=== PATIENT | male | born 1975 | race American Indian/Alaskan Native ===

== ENCOUNTER 2018-01-06 21:31 | Emergency (ER) | payer MEDICAID ==
[2018-01-06 21:51] VITALS: BP 122/76; PULSE 103; RESP 18; TEMP 98; O2SAT 98
[2018-01-06] MEDS ORDERED: Divalproex 500 mg DR Tab PO STA (22:10)
[2018-01-06] MEDS ORDERED: Divalproex 500 mg DR Tab PO ONE (22:19)
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
[2018-01-06] MEDS ORDERED: Divalproex 250 mg DR Tab PO ONE (22:28)
== END 2018-01-06 22:36 | disposition home or self-care (01) ==
LOC: C.ER 21:31 → SUPCPDRO 21:31 → C.ER 22:36
DX: R56.9 Unspecified convulsions (principal)